=== PATIENT | female | born 1960 | race Caucasian/White ===

== ENCOUNTER 2024-09-01 08:59 | Emergency (ER) | payer BC, SELFPAY ==
[2024-09-01 09:01] VITALS: BP 150/88; PULSE 89; RESP 18; TEMP 37.1; O2SAT 99; BMI 25.8
--- NOTE | 2024-09-01 09:16 | RAD_ITS ---
PROCEDURE: LEFT ELBOW, THREE VIEWS REASON FOR EXAM: TRAUMA. PATIENT FELL. TECHNIQUE: 4 view(s) of LEFT elbow COMPARISON: No relevant prior. FINDINGS: Transverse fracture through the olecranon with distraction of the fracture fragments by approximately 1.1 cm. No dislocation or subluxation. Marked soft tissue swelling dorsally. RAD/Elbow min 3 Views IMPRESSION: ACUTE TRANSVERSE FRACTURE through the olecranon with marked soft tissue swellin g. Reading Location: [facility]
--- NOTE | 2024-09-01 09:17 | ED.VIS.FALL ---
HPI HPI - Fall History of Present Illness Chief Complaint: Fall Narrative Narrative: 64-year-old female who denies significant past medical history presents with injury to her left elbow and hip from a fall on the ice today. She states that she was at the bottom of her driveway, when she slipped and fell. She landed on her left side. She did not hit her head or lose consciousness. She states she was able to get up and walk into the house. She kicked off her shoes and noticed mild left hip tenderness and soreness, but was able to ambulate. When she took off her coat, she noticed pain and swelling of her left elbow. Her states that he noticed a divot in that area after all the swelling. She is right-hand dominant. She denies other injuries. No neck pain, no rib pain or shortness of breath. She took 2 extra strength Tylenol prior to arrival and had next her sling at home which she donned. She presents to the emergency department mainly with left elbow pain status post fall, and mild left hip pain. PFSH PFSH Home Medications ?Medication ?Instructions ?Recorded ?Last Taken ?Type oxycodone 5 mg tablet 5 mg PO Q6H PRN pain 3 days #12 09/01/24 Unknown Rx tabs Allergy/AdvReac Type Severity Reaction Status Date / Time No Known Allergies Allergy Verified 09/01/24 09:00 Family History no significant family his Social History Smoking Status: Never smoker ROS ROS ED ROS Narrative Review of systems positive for left elbow pain and swelling. Left hip tenderness. This was a mechanical fall, no prodromal symptoms. No neck pain, no hitting of head, no loss of consciousness. Denies other injuries. Able to ambulate. EXAM Physical Exam Narrative Exam Narrative: GCS 15. ABCs are intact. Head is normocephalic and atraumatic. PERRL, EOMI. Neck soft and supple without meningismus. No vertebral point tenderness or bony step-off. Cardiovascular examination reveals a regular rate and rhythm. Lungs are clear to auscultation bilaterally. Abdomen is soft and nontender without guarding or rebound. Positive bowel sounds. Pelvis stable. Minimal diffuse tenderness to palpation left hip. Able to flex and extend at hip and knee. Neurovascularly intact distally with palpable dorsalis pedis pulse, left. No crepitance. Full range of motion left hip. Inspection of the left elbow does reveal mild olecranon bursa swelling without crepitance. Able to flex and extend and pronate and supinate forearm. Uninjured at elbow and above. Const Vital Signs: 09/01/24 09:01 09/01/24 09:18 Temperature 98.7 F Temperature Source Oral Pulse Rate 89 Respiratory Rate 18 Respiratory Effort Normal Respiratory Depth Normal Respiratory Pattern Normal Blood Pressure 150/88 H Blood Pressure Mean 108 Pulse Ox 99 Oxygen Delivery Method Room Air Room Air MDM MDM MDM Narrative Medical decision making narrative: Differential diagnosis includes but not limited to fracture versus contusion versus dislocation of left elbow versus fracture dislocation. Clinically have low suspicion for a dislocation. As she has already taken Tylenol she was given oxycodone 5 mg orally here. X-rays were obtained of the left hip and pelvis as well as the left elbow to rule out fracture. On my independent interpretation of the left elbow and 3 views there is a transverse fracture through the olecranon with soft tissue swelling. I reviewed the radiology report which confirms my independent interpretation. X-ray of the left hip and pelvis shows no evidence of acute fracture on my independent interpretation. I reviewed the radiology report which confirms my independent interpretation as well. I discussed patient with Dr. Rome Erickson with orthopedics who also reviewed the x-rays and agrees. Patient will be placed in a long-arm posterior splint and follow-up with orthopedics within the next week for ORIF. Return instructions to the emergency department were reviewed. She will take [id number] Tylenol and she was written a prescription for 12 oxycodone tablets, 5 mg. Disposition is discharged home in stable condition. History & Record Review Discussion w/independent historian: Patient Radiography Diagnostic Testing: Clinical Impression(s) from Imaging Studies Elbow X-Ray 09/01/24 09:16 IMPRESSION: ACUTE TRANSVERSE FRACTURE through the olecranon with marked soft tissue swelling. Reading Location: [facility] Hip/Pelvis X-Ray 09/01/24 09:40 IMPRESSION: No acute abnormality is seen. Reading Location: [id number] Procedures Upper Extremity Splints Upper Extremity Splint: Orthoglass and Long arm Splint Fabrication: Fabricated Location: Left Discharge Plan Triage Chief Complaint: Fall ED Provider: Luciano Plummer Dx/Rx/DC Orders Clinical Impression: Fall, Closed fracture dislocation of left elbow, Contusion of left hip Instructions: ED Elbow Fracture, ED Mechanical Fall Prescriptions: New oxycodone 5 mg tablet 5 mg PO Q6H PRN (Reason: pain) 3 Days Qty: 12 0RF Primary Care Provider: Luis Brantley Referrals: Rome Erickson MD [Med Staff - Active Staff] - 1 Week (Left elbow fracture) Luis Brantley MD [Primary Care Provider] - Activity Restrictions/Additional Instructions: Follow-up with orthopedics within the next week. Call the office for an appointment. Pain medication as directed. Return with new or worsening symptoms. Print Language: Turkmen Disposition Disposition: Home, Self Care
[2024-09-01] MEDS: oxyCODONE 5 MG Tablet PO (09:22)
--- NOTE | 2024-09-01 09:40 | RAD_ITS ---
PROCEDURE: HIP, UNI W/ PELVIS 2-3 VIEWS REASON FOR EXAM: Left hip pain following a fall. TECHNIQUE: Three views of the left hip were obtained. COMPARISON: None. FINDINGS: No fracture. No suspicious bone lesion. Normal alignment. Soft tissues are unremarkable. RAD/HIP, UNI W/ Pelvis 2-3 Views IMPRESSION: No acute abnormality is seen. Reading Location: [id number]
[2024-09-01 12:19] VITALS: BP 145/78; PULSE 85; RESP 18; TEMP 37.1; O2SAT 100
== END 2024-09-01 12:21 | disposition home or self-care (01) ==
PROVIDERS: Emergency Provider Emergency Medicine; PCP Internal Medicine; Visit Provider Emergency Medicine
DX: S52.022A Displaced fracture of olecranon process without intraarticular extension of left ulna, initial encounter for closed fracture (principal); S70.02XA Contusion of left hip, initial encounter; W00.2XXA Other fall from one level to another due to ice and snow, initial encounter; Y92.89 Other specified places as the place of occurrence of the external cause
CPT/HCPCS: 29105; 73080; 73502; 99282